=== PATIENT | male | born 1950 | race Caucasian/White ===

== ENCOUNTER 2019-02-17 10:39 | Day surgery (SDC) | payer BC, MEDICARE ==
[2019-02-12 12:35] LABS: BASOPHILS % (AUTO) 0.5 % (0-1); EOSINOPHILS # (AUTO) 0.3 X10'3 (0-0.9); EOSINOPHILS % (AUTO) 3.8 % (0-6); HEMATOCRIT 48.2 % (42.0-52.0); HEMOGLOBIN 16.2 g/dl (14.0-17.9); LYMPHOCYTES # (AUTO) 1.8 X10'3 (1.1-4.8); MEAN CORPUSCULAR HEMOGLOBIN 30.5 PG (27.0-31.0); MEAN CORPUSCULAR HGB CONC 33.7 g/dL (33.0-36.5); MEAN CORPUSCULAR VOLUME 90.6 FL (78-98); MEAN PLATELET VOLUME 8.8 FL (7.4-10.4); MONOCYTES # (AUTO) 0.6 X10'3 (0-0.9); MONOCYTES % (AUTO) 8.7 % (2-12); NEUTROPHILS # (AUTO) 4.2 X10'3 (1.8-7.7); PLATELET COUNT 218 X10'3 (140-440); RED BLOOD COUNT 5.32 X10'6 (4.70-6.10); RED CELL DISTRIBUTION WIDTH 14.7 % (11.5-14.5); WHITE BLOOD COUNT 6.9 X10'3 (4.5-11.0)
[2019-02-12 12:38] LABS: PARTIAL THROMBOPLASTIN TIME 28 SECONDS (22-32); PROTHROMBIN TIME 9.8 SECONDS (9.0-12.0)
[2019-02-12 12:43] LABS: ALANINE AMINOTRANSFERASE 22 U/L (12-78); ALBUMIN 3.6 G/DL (3.4-5.0); ALBUMIN/GLOBULIN RATIO 1.1 (1.1-1.5); ALKALINE PHOSPHATASE 68 IU/L (46-116); ANION GAP 7 (8-16); ASPARTATE AMINO TRANSFERASE 16 U/L (10-37); BILIRUBIN,TOTAL 0.2 MG/DL (0.1-1.0); BLOOD UREA NITROGEN 16 MG/DL (7-18); BUN/CREATININE RATIO 16.5 (5.4-32.0); CALCIUM 9.3 MG/DL (8.5-10.1); CHLORIDE 108 MMOL/L (99-107); CREATININE 0.97 MG/DL (0.60-1.10); GLUCOSE 90 MG/DL (70-104); POTASSIUM 4.1 MMOL/L (3.5-5.1); SODIUM 142 MMOL/L (135-145); TOTAL CARBON DIOXIDE 26.6 MMOL/L (24-32); TOTAL PROTEIN 6.9 G/DL (6.4-8.2); eGFR 77 ML/MIN
[2019-02-17] VITALS (14 sets, daily range): BP systolic 99–153; BP diastolic 30–90
[~2019-02-17] VITALS: Ht 182.9 cm; Wt 104.0 kg
[2019-02-17] MEDS ORDERED: normal saline 1000ml 1,000 ML IV SCH (11:05)
[2019-02-17] MEDS ORDERED: diphenhydrAMINE 25mg capsule PO PRN (11:05)
[2019-02-17] MEDS ORDERED: LORazepam 0.5 MG tablet PO PRN (11:05)
[2019-02-17] MEDS ORDERED: nitroGLYCERIN 0.4mg SUBLingual tab SL PRN (11:05)
[2019-02-17] MEDS ORDERED: LIDOcaine 1% (10mg/ml)w/preservative injection 20ml MDV ONE (11:32)
[2019-02-17] MEDS ORDERED: iohexol 350 MG/ML 50ML vial IV ONE ×3 (11:32→13:01)
[2019-02-17] MEDS ORDERED: iohexol 350MG/ML 100ml bottle IV ONE (11:32)
[2019-02-17] MEDS ORDERED: ASPI-845 PO (11:57)
[2019-02-17] MEDS ORDERED: BUDE10.22 INH (11:57)
[2019-02-17] MEDS ORDERED: ATEN50TA PO (11:57)
[2019-02-17] MEDS ORDERED: ALBU8HFA PO (11:57)
[2019-02-17] MEDS ORDERED: LORA10TA7 PO (11:57)
[2019-02-17] MEDS ORDERED: CRAN200C PO (11:57)
[2019-02-17] MEDS ORDERED: SIMV40TA4 PO (11:57)
[2019-02-17] MEDS ORDERED: SAW/1TAB2 PO (11:57)
[2019-02-17] MEDS ORDERED: HYDR-3973 PO (11:57)
[2019-02-17] MEDS ORDERED: TERA5CAP4 PO (11:57)
[2019-02-17] MEDS ORDERED: TIOT18CA3 INH (11:57)
[2019-02-17] MEDS ORDERED: LISI10TA4 PO (11:57)
[2019-02-17] MEDS ORDERED: SERT50TA PO (11:57)
[2019-02-17] MEDS ORDERED: midazolam 2 mg/2 ml injection ONE ×2 (12:10→12:37)
[2019-02-17] MEDS ORDERED: fentaNYL/PF 50MCG/1 ML 2ML syringe ONE ×2 (12:11→13:04)
[2019-02-17] MEDS ORDERED: OXAZEpam 15mg capsule PO PRN (15:25)
[2019-02-17] MEDS ORDERED: ondansetron/PF 4mg/2ml inj IV PRN (15:25)
[2019-02-17] MEDS ORDERED: HYDROcodone/acetaminophen 5mg/325mg tablet PO PRN (15:25)
[2019-02-17] MEDS ORDERED: proCHLORperazine 10 MG/2 ml inj IV PRN (15:25)
[2019-02-17] MEDS ORDERED: HYDROcodone/acetaminophen 10/325mg tab PO PRN (15:25)
== END 2019-02-17 20:00 | disposition home or self-care (01) ==
LOC: SSTAY O 10:39
PROVIDERS: ATTEND Internal Medicine Cardiovascular Disease
DX: I25.10 Atherosclerotic heart disease of native coronary artery without angina pectoris (principal); I10 Essential (primary) hypertension; J44.9 Chronic obstructive pulmonary disease, unspecified; G89.4 Chronic pain syndrome; I71.9 Aortic aneurysm of unspecified site, without rupture
CPT/HCPCS: 36415; 71046; 80053; 85025; 85610; 85730; 93005; 93459; 99152; 99153; A6257; J1644; J2001; J2250; J3010; J7030; Q0163; Q9967; A4620; C1760; C1769